=== PATIENT | male | born 1950 | race Hispanic/Latino ===

== ENCOUNTER 2022-05-31 19:26 | Inpatient (IN) | payer MEDICARE ==
[~2022-05-31] VITALS: Ht 177.8 cm; Wt 83.0 kg
[2022-05-31 20:05] LABS: BASOPHILS % (AUTO) 0.4 % (0.0-5.0); EOSINOPHILS % (AUTO) 2.5 % (0.0-8.0); HEMATOCRIT 37.4 % (42-54); LYMPHOCYTES % (AUTO) 30.6 % (21.0-51.0); MEAN CORPUSCULAR HEMOGLOBIN 29.2 pg (27.0-33.0); MEAN CORPUSCULAR HGB CONC 32.6 g/dL (32.0-36.0); MEAN CORPUSCULAR VOLUME 89.5 fL (79-99); MONOCYTES % (AUTO) 7.1 % (3.0-13.0); NEUTROPHILS % (AUTO) 59.2 % (40.0-77.0); PLATELET COUNT (AUTO) 222 K/uL (130-400); RED BLOOD CELL COUNT(AUTO) 4.18 MIL/uL (4.50-6.20); RED CELL DISTRIBUTION WIDTH 13.8 % (11.0-15.5)
[2022-05-31 20:15] LABS: CREATININE 1.8 mg/dL (0.5-1.5); POTASSIUM 4.5 mmol/L (3.5-5.1)
[2022-05-31 20:25] LABS: TOTAL PROTEIN, SERUM 7.9 g/dL (6.0-8.3)
[2022-05-31 20:29] LABS: APPEARANCE,URINE TURBID (CLEAR); BILIRUBIN,URINE NEGATIVE (NEGATIVE); COLOR,URINE RED (YELLOW); GLUCOSE, URINE (UA) 250 mg/dL (NEGATIVE); KETONES,URINE NEGATIVE (NEGATIVE); LEUKOCYTE ESTERASE ,URINE NEGATIVE Leu/uL (NEGATIVE); NITRATE,URINE NEGATIVE (NEGATIVE); OCCULT BLOOD,URINE LARGE (NEGATIVE); PH,URINE 6.5 (5.0-8.0); PROTEIN,URINE >=300 mg/dL (NEGATIVE); UROBILINOGEN,URINE 0.2 mg/dL (0.2-1.0)
[2022-05-31 20:38] LABS: BACTERIA,URINE Rare /HPF (None Seen); RBC,URINE TNTC /HPF (0-1); SQUAMOUS EPITHELIAL CELL,UR None Seen /HPF (0-2); WBC,URINE 0-1 /HPF (0-1)
[2022-06-01] MEDS ORDERED: MORPHINE 2 MG SYG IV PRN (03:00)
[2022-06-01] MEDS ORDERED: POTASSIUM CHLORIDE 20MEQ/100ML 100 ML IV PRN (03:00)
[2022-06-01] MEDS ORDERED: ONDANSETRON 4MG INJ IV PRN (03:00)
[2022-06-01] MEDS ORDERED: LACTATED RINGERS 1000ML 1,000 ML IV SCH (03:00)
[2022-06-01] MEDS ORDERED: ACETAMINOPHEN 325 MG TAB PO PRN (03:00)
[2022-06-01] MEDS ORDERED: MORPHINE 4 MG SYG IV PRN (03:00)
[2022-06-01] MEDS ORDERED: KCL 20 MEQ ERTAB PO PRN (03:00)
[2022-06-01] MEDS ORDERED: MAGNESIUM 2GM PREMIX 50ML 50 ML IV PRN (03:00)
[2022-06-01] MEDS ORDERED: NITROGLYCERIN 0.4 MG SL TAB SL PRN (03:00)
[2022-06-01] MEDS ORDERED: LIDOCAINE HCL-MPF 1% 2ML VIAL IV PRN (03:00)
[2022-06-01] MEDS ORDERED: ASPIRIN 81MG CHEW TAB PO ONE (03:00)
[2022-06-01] MEDS ORDERED: POTASSIUM CHLORIDE 10% ELIXIR 20 MEQ/15 ML UDCUP PO PRN (03:00)
[2022-06-01] MEDS ORDERED: ASPIRIN 81MG CHEW TAB ONE (03:44)
[2022-06-01 03:48] LABS: CREATININE,URINE RANDOM 86 mg/dL (30-135); SODIUM,URINE RANDOM 41 mmol/l (40-220)
[2022-06-01 04:37] LABS: BASOPHILS % (AUTO) 0.4 % (0.0-5.0); EOSINOPHILS % (AUTO) 2.7 % (0.0-8.0); HEMATOCRIT 38.9 % (42-54); LYMPHOCYTES % (AUTO) 31.8 % (21.0-51.0); MEAN CORPUSCULAR HEMOGLOBIN 28.4 pg (27.0-33.0); MEAN CORPUSCULAR HGB CONC 31.1 g/dL (32.0-36.0); MEAN CORPUSCULAR VOLUME 91.3 fL (79-99); MONOCYTES % (AUTO) 7.4 % (3.0-13.0); NEUTROPHILS % (AUTO) 57.3 % (40.0-77.0); PLATELET COUNT (AUTO) 216 K/uL (130-400); RED BLOOD CELL COUNT(AUTO) 4.26 MIL/uL (4.50-6.20); RED CELL DISTRIBUTION WIDTH 13.7 % (11.0-15.5); WHITE BLOOD COUNT (AUTO) 10.3 K/uL (4.8-10.8)
[2022-06-01 04:51] LABS: INR 0.97 (0.85-1.15); PROTHROMBIN TIME 10.6 SEC (9.6-11.6)
[2022-06-01 04:52] LABS: PARTIAL THROMBOPLASTIN TIME 29.6 SEC (26.3-35.5)
[2022-06-01 04:55] LABS: HEMOGLOBIN A1C 6.2 % (4.0-6.0)
[2022-06-01 04:59] LABS: CREATININE 1.7 mg/dL (0.5-1.5); MAGNESIUM 2.5 mg/dL (1.80-2.40); PHOSPHORUS 4.4 mg/dL (2.5-4.9); POTASSIUM 4.5 mmol/L (3.5-5.1); THYROID STIMULATING HORMONE 8.58 uIU/mL (0.36-3.74)
[2022-06-01 05:00] VITALS: BP 128/65
[2022-06-01] MEDS ORDERED: VIT1CAPS5 PO (05:48)
[2022-06-01] MEDS ORDERED: LEVO112C4 PO (05:48)
[2022-06-01] MEDS ORDERED: ATOR40TA71 PO (05:48)
[2022-06-01] MEDS ORDERED: TORS20TA4 PO (05:48)
[2022-06-01] MEDS ORDERED: METO25TA6 PO (05:48)
[2022-06-01] MEDS ORDERED: ASCO100031 PO (05:48)
[2022-06-01] MEDS ORDERED: SITA1TAB6 PO (05:48)
[2022-06-01] MEDS ORDERED: MULT1CAP57 PO (05:48)
[2022-06-01] MEDS ORDERED: SACU1TAB7 PO (05:48)
[2022-06-01] MEDS ORDERED: DAPA10TA PO (05:48)
[2022-06-01] MEDS ORDERED: MV-M1TAB20 PO (05:48)
[2022-06-01] MEDS ORDERED: APIX5TAB PO (05:48)
[2022-06-01] MEDS: INSULIN HUMULIN R 100 UNIT/ML 3ML SQ SCH ×4 (06:34→21:00)
[2022-06-01 08:00] VITALS: BP 114/65
[2022-06-01] MEDS: FAMOTIDINE 20MG TAB PO SCH (08:44)
[2022-06-01] MEDS ORDERED: ASPIRIN 81MG CHEW TAB PO SCH (09:00)
[2022-06-01 09:47] LABS: HEMATOCRIT 31.8 % (42-54)
[2022-06-01 12:00] VITALS: BP 125/73
[2022-06-01 16:00] VITALS: BP 115/62
[2022-06-01 16:00] LABS: HEMATOCRIT 35.2 % (42-54)
[2022-06-01] MEDS: DEXTROSE 5 %-0.45 % NACL 1,000 ML IV SCH (19:00)
[2022-06-01 20:00] VITALS: BP 120/65
[2022-06-01] MEDS: SACUBITRIL/VALSARTAN 1 EACH TABLET PO SCH (21:44)
[2022-06-01] MEDS: ATORVASTATIN 40 MG TABLET PO SCH (21:45)
[2022-06-01 23:06] LABS: HEMATOCRIT 30.9 % (42-54)
[2022-06-02] VITALS: BP 109/62
[2022-06-02 04:00] VITALS: BP 114/65
[2022-06-02] MEDS: DEXTROSE 5 %-0.45 % NACL 1,000 ML IV SCH (05:00)
[2022-06-02] MEDS: INSULIN HUMULIN R 100 UNIT/ML 3ML SQ SCH ×4 (05:46→21:00)
[2022-06-02 06:05] LABS: BASOPHILS % (AUTO) 0.3 % (0.0-5.0); EOSINOPHILS % (AUTO) 1.9 % (0.0-8.0); HEMATOCRIT 32.4 % (42-54); LYMPHOCYTES % (AUTO) 21.7 % (21.0-51.0); MEAN CORPUSCULAR HEMOGLOBIN 28.7 pg (27.0-33.0); MEAN CORPUSCULAR HGB CONC 32.1 g/dL (32.0-36.0); MEAN CORPUSCULAR VOLUME 89.3 fL (79-99); MONOCYTES % (AUTO) 8.3 % (3.0-13.0); NEUTROPHILS % (AUTO) 67.5 % (40.0-77.0); PLATELET COUNT (AUTO) 183 K/uL (130-400); RED BLOOD CELL COUNT(AUTO) 3.63 MIL/uL (4.50-6.20); RED CELL DISTRIBUTION WIDTH 13.4 % (11.0-15.5); WHITE BLOOD COUNT (AUTO) 7.5 K/uL (4.8-10.8)
[2022-06-02 06:20] LABS: CREATININE 1.3 mg/dL (0.5-1.5); MAGNESIUM 2.2 mg/dL (1.80-2.40); POTASSIUM 4.1 mmol/L (3.5-5.1)
[2022-06-02 06:39] LABS: % IRON SATURATION 11.3 % (30-44)
[2022-06-02] MEDS: LEVOTHYROXINE 112 MCG TABLET PO SCH (06:52)
[2022-06-02 06:57] LABS: B-TYPE NATRIURETIC PEPTIDE 631 pg/mL (0-100)
[2022-06-02 08:00] VITALS: BP 127/66
[2022-06-02] MEDS: METOPROLOL SUCCINATE 25 MG TAB.SR.24H PO SCH (08:58)
[2022-06-02] MEDS: FAMOTIDINE 20MG TAB PO SCH (08:58)
[2022-06-02] MEDS: SACUBITRIL/VALSARTAN 1 EACH TABLET PO SCH ×2 (08:58→20:57)
[2022-06-02] MEDS: ISOSORBIDE MONO 30MG SR TAB PO SCH (08:59)
[2022-06-02] MEDS: ASPIRIN 81 MG EC TAB PO SCH (09:00)
[2022-06-02] MEDS ORDERED: METOPROLOL TARTRATE 25 MG TAB PO SCH (09:00)
[2022-06-02 12:00] VITALS: BP 97/61
[2022-06-02 16:00] VITALS: BP 122/64
[2022-06-02 20:00] VITALS: BP 109/52
[2022-06-02] MEDS: ATORVASTATIN 40 MG TABLET PO SCH (20:57)
[2022-06-02] MEDS ORDERED: IRON SUCROSE COMPLEX 300 MG in 0.9% NACL 250ML 250 ML IV SCH (21:00)
[2022-06-03] VITALS (7 sets, daily range): BP systolic 98–130; BP diastolic 47–72
[2022-06-03] MEDS: DEXTROSE 5 %-0.45 % NACL 1,000 ML IV SCH (01:00)
[2022-06-03 05:55] LABS: BASOPHILS % (AUTO) 0.3 % (0.0-5.0); EOSINOPHILS % (AUTO) 1.2 % (0.0-8.0); HEMATOCRIT 29.8 % (42-54); LYMPHOCYTES % (AUTO) 18.3 % (21.0-51.0); MEAN CORPUSCULAR HEMOGLOBIN 28.6 pg (27.0-33.0); MEAN CORPUSCULAR HGB CONC 31.2 g/dL (32.0-36.0); MEAN CORPUSCULAR VOLUME 91.7 fL (79-99); MONOCYTES % (AUTO) 7.9 % (3.0-13.0); PLATELET COUNT (AUTO) 186 K/uL (130-400); RED BLOOD CELL COUNT(AUTO) 3.25 MIL/uL (4.50-6.20); RED CELL DISTRIBUTION WIDTH 13.6 % (11.0-15.5); WHITE BLOOD COUNT (AUTO) 8.9 K/uL (4.8-10.8)
[2022-06-03 06:20] LABS: CREATININE 1.3 mg/dL (0.5-1.5); MAGNESIUM 2.2 mg/dL (1.80-2.40); POTASSIUM 4.4 mmol/L (3.5-5.1); TOTAL PROTEIN, SERUM 6.5 g/dL (6.0-8.3)
[2022-06-03] MEDS: LEVOTHYROXINE 112 MCG TABLET PO SCH (06:21)
[2022-06-03] MEDS: INSULIN HUMULIN R 100 UNIT/ML 3ML SQ SCH ×2 (06:21→20:50)
[2022-06-03] MEDS: SACUBITRIL/VALSARTAN 1 EACH TABLET PO SCH ×2 (08:31→20:49)
[2022-06-03] MEDS: ASPIRIN 81 MG EC TAB PO SCH (08:32)
[2022-06-03] MEDS: METOPROLOL SUCCINATE 25 MG TAB.SR.24H PO SCH (08:32)
[2022-06-03] MEDS: FAMOTIDINE 20MG TAB PO SCH (08:32)
[2022-06-03] MEDS: ISOSORBIDE MONO 30MG SR TAB PO SCH (08:32)
[2022-06-03] MEDS: ATORVASTATIN 40 MG TABLET PO SCH (20:49)
[2022-06-03] MEDS ORDERED: IRON SUCROSE COMPLEX 300 MG in 0.9% NACL 250ML 250 ML IV SCH (21:00)
[2022-06-04 04:31] VITALS: BP 117/61
[2022-06-04] MEDS: LEVOTHYROXINE 112 MCG TABLET PO SCH (05:37)
[2022-06-04] MEDS: INSULIN HUMULIN R 100 UNIT/ML 3ML SQ SCH ×3 (06:08→21:00)
[2022-06-04 07:15] VITALS: BP 120/63
[2022-06-04 07:58] LABS: BASOPHILS % (AUTO) 0.3 % (0.0-5.0); EOSINOPHILS % (AUTO) 3.2 % (0.0-8.0); HEMATOCRIT 29.2 % (42-54); LYMPHOCYTES % (AUTO) 20.9 % (21.0-51.0); MEAN CORPUSCULAR HEMOGLOBIN 28.5 pg (27.0-33.0); MEAN CORPUSCULAR HGB CONC 31.5 g/dL (32.0-36.0); MEAN CORPUSCULAR VOLUME 90.4 fL (79-99); MONOCYTES % (AUTO) 9.6 % (3.0-13.0); NEUTROPHILS % (AUTO) 65.6 % (40.0-77.0); PLATELET COUNT (AUTO) 189 K/uL (130-400); RED BLOOD CELL COUNT(AUTO) 3.23 MIL/uL (4.50-6.20); RED CELL DISTRIBUTION WIDTH 13.7 % (11.0-15.5); WHITE BLOOD COUNT (AUTO) 7.1 K/uL (4.8-10.8)
[2022-06-04 08:15] LABS: ALBUMIN 3.1 g/dL (3.5-5.0); CREATININE 1.2 mg/dL (0.5-1.5); MAGNESIUM 2.2 mg/dL (1.80-2.40); POTASSIUM 4.9 mmol/L (3.5-5.1); TOTAL PROTEIN, SERUM 6.6 g/dL (6.0-8.3)
[2022-06-04] MEDS: ASPIRIN 81 MG EC TAB PO SCH (09:55)
[2022-06-04] MEDS: ISOSORBIDE MONO 30MG SR TAB PO SCH (09:56)
[2022-06-04] MEDS: METOPROLOL SUCCINATE 25 MG TAB.SR.24H PO SCH (09:56)
[2022-06-04] MEDS: SACUBITRIL/VALSARTAN 1 EACH TABLET PO SCH ×2 (09:56→22:48)
[2022-06-04] MEDS: FAMOTIDINE 20MG TAB PO SCH (09:56)
[2022-06-04 11:15] VITALS: BP 99/58
[2022-06-04 15:20] VITALS: BP 114/58
[2022-06-04] MEDS ORDERED: IOHEXOL 350 MG/ML 100ML INFUS..BTL IV ONE (15:48)
[2022-06-04 20:21] VITALS: BP 115/63
[2022-06-04] MEDS: ATORVASTATIN 40 MG TABLET PO SCH (22:48)
[2022-06-05] VITALS (7 sets, daily range): BP systolic 107–132; BP diastolic 52–72
[2022-06-05] MEDS: DEXTROSE 5 %-0.45 % NACL 1,000 ML IV SCH ×2 (03:00→13:00)
[2022-06-05] MEDS: INSULIN HUMULIN R 100 UNIT/ML 3ML SQ SCH ×4 (05:02→20:42)
[2022-06-05 05:24] LABS: BASOPHILS % (AUTO) 0.2 % (0.0-5.0); HEMATOCRIT 28.2 % (42-54); LYMPHOCYTES % (AUTO) 21.6 % (21.0-51.0); MEAN CORPUSCULAR HGB CONC 31.2 g/dL (32.0-36.0); MEAN CORPUSCULAR VOLUME 89.8 fL (79-99); MONOCYTES % (AUTO) 9.5 % (3.0-13.0); NEUTROPHILS % (AUTO) 65.3 % (40.0-77.0); PLATELET COUNT (AUTO) 199 K/uL (130-400); RED BLOOD CELL COUNT(AUTO) 3.14 MIL/uL (4.50-6.20); RED CELL DISTRIBUTION WIDTH 13.8 % (11.0-15.5); WHITE BLOOD COUNT (AUTO) 8.1 K/uL (4.8-10.8)
[2022-06-05 05:43] LABS: ALBUMIN 2.9 g/dL (3.5-5.0); CREATININE 1.1 mg/dL (0.5-1.5); MAGNESIUM 2.1 mg/dL (1.80-2.40); POTASSIUM 4.2 mmol/L (3.5-5.1); TOTAL PROTEIN, SERUM 6.4 g/dL (6.0-8.3)
[2022-06-05] MEDS: LEVOTHYROXINE 112 MCG TABLET PO SCH (06:27)
[2022-06-05] MEDS: ASPIRIN 81 MG EC TAB PO SCH (09:00)
[2022-06-05] MEDS: METOPROLOL SUCCINATE 25 MG TAB.SR.24H PO SCH (10:54)
[2022-06-05] MEDS: SACUBITRIL/VALSARTAN 1 EACH TABLET PO SCH ×2 (10:54→21:14)
[2022-06-05] MEDS: FAMOTIDINE 20MG TAB PO SCH (10:54)
[2022-06-05] MEDS: ISOSORBIDE MONO 30MG SR TAB PO SCH (10:56)
[2022-06-05] MEDS: ATORVASTATIN 40 MG TABLET PO SCH (21:14)
[2022-06-06] MEDS: DEXTROSE 5 %-0.45 % NACL 1,000 ML IV SCH ×3 (02:47→18:12)
[2022-06-06 04:21] VITALS: BP 121/68
[2022-06-06] MEDS: INSULIN HUMULIN R 100 UNIT/ML 3ML SQ SCH ×4 (07:30→21:00)
[2022-06-06 08:00] VITALS: BP 118/61
[2022-06-06] MEDS: LEVOTHYROXINE 112 MCG TABLET PO SCH (08:01)
[2022-06-06] MEDS: METOPROLOL SUCCINATE 25 MG TAB.SR.24H PO SCH (09:02)
[2022-06-06] MEDS: FAMOTIDINE 20MG TAB PO SCH (09:03)
[2022-06-06] MEDS: ASPIRIN 81 MG EC TAB PO SCH (09:03)
[2022-06-06] MEDS: ISOSORBIDE MONO 30MG SR TAB PO SCH (09:03)
[2022-06-06] MEDS: SACUBITRIL/VALSARTAN 1 EACH TABLET PO SCH ×2 (09:03→22:51)
[2022-06-06 12:00] VITALS: BP 106/59
[2022-06-06 12:38] LABS: BASOPHILS % (AUTO) 0.3 % (0.0-5.0); EOSINOPHILS % (AUTO) 3.9 % (0.0-8.0); HEMATOCRIT 24.8 % (42-54); LYMPHOCYTES % (AUTO) 23.4 % (21.0-51.0); MEAN CORPUSCULAR HEMOGLOBIN 28.5 pg (27.0-33.0); MEAN CORPUSCULAR HGB CONC 31.5 g/dL (32.0-36.0); MEAN CORPUSCULAR VOLUME 90.5 fL (79-99); MONOCYTES % (AUTO) 10.5 % (3.0-13.0); NEUTROPHILS % (AUTO) 61.7 % (40.0-77.0); PLATELET COUNT (AUTO) 184 K/uL (130-400); RED BLOOD CELL COUNT(AUTO) 2.74 MIL/uL (4.50-6.20); WHITE BLOOD COUNT (AUTO) 5.9 K/uL (4.8-10.8)
[2022-06-06 12:50] LABS: ALBUMIN 2.6 g/dL (3.5-5.0); CREATININE 1.2 mg/dL (0.5-1.5); MAGNESIUM 2.1 mg/dL (1.80-2.40); POTASSIUM 4.1 mmol/L (3.5-5.1)
[2022-06-06 16:00] VITALS: BP 116/66
[2022-06-06 20:00] VITALS: BP 116/66
[2022-06-06] MEDS: ATORVASTATIN 40 MG TABLET PO SCH (22:51)
[2022-06-06] MEDS ORDERED: HYDROXYZINE 25 MG TABLET PO ONE (23:30)
[2022-06-07] VITALS: BP 116/59
[2022-06-07 04:00] VITALS: BP 139/73
[2022-06-07] MEDS: DEXTROSE 5 %-0.45 % NACL 1,000 ML IV SCH ×3 (05:00→22:15)
[2022-06-07 06:56] LABS: BASOPHILS % (AUTO) 0.4 % (0.0-5.0); EOSINOPHILS % (AUTO) 3.9 % (0.0-8.0); HEMATOCRIT 32.7 % (42-54); LYMPHOCYTES % (AUTO) 21.3 % (21.0-51.0); MEAN CORPUSCULAR HGB CONC 32.4 g/dL (32.0-36.0); MEAN CORPUSCULAR VOLUME 89.3 fL (79-99); MONOCYTES % (AUTO) 9.6 % (3.0-13.0); NEUTROPHILS % (AUTO) 64.5 % (40.0-77.0); PLATELET COUNT (AUTO) 193 K/uL (130-400); RED BLOOD CELL COUNT(AUTO) 3.66 MIL/uL (4.50-6.20); RED CELL DISTRIBUTION WIDTH 14.2 % (11.0-15.5)
[2022-06-07 07:17] LABS: ALBUMIN 2.8 g/dL (3.5-5.0); CREATININE 1.2 mg/dL (0.5-1.5); MAGNESIUM 2.1 mg/dL (1.80-2.40); POTASSIUM 4.3 mmol/L (3.5-5.1); TOTAL PROTEIN, SERUM 6.3 g/dL (6.0-8.3)
[2022-06-07] MEDS: INSULIN HUMULIN R 100 UNIT/ML 3ML SQ SCH ×4 (07:30→20:22)
[2022-06-07] MEDS: LEVOTHYROXINE 112 MCG TABLET PO SCH (07:47)
[2022-06-07 08:00] VITALS: BP 122/71
[2022-06-07] MEDS: FAMOTIDINE 20MG TAB PO SCH (08:45)
[2022-06-07] MEDS: ASPIRIN 81 MG EC TAB PO SCH (08:45)
[2022-06-07] MEDS: METOPROLOL SUCCINATE 25 MG TAB.SR.24H PO SCH (08:45)
[2022-06-07] MEDS: SACUBITRIL/VALSARTAN 1 EACH TABLET PO SCH ×2 (08:46→20:16)
[2022-06-07] MEDS: ISOSORBIDE MONO 30MG SR TAB PO SCH (08:46)
[2022-06-07 12:00] VITALS: BP 112/67
[2022-06-07] MEDS ORDERED: DESMOPRESSIN IJ SCH (12:30)
[2022-06-07] MEDS ORDERED: [UNRECOGNIZED DRUG - OTHER] IJ SCH (12:30)
[2022-06-07 16:00] VITALS: BP 111/63
[2022-06-07 20:00] VITALS: BP 138/64
[2022-06-07] MEDS: AMINOCAPROIC ACID 500MG TAB PO SCH (20:16)
[2022-06-07] MEDS: ATORVASTATIN 40 MG TABLET PO SCH (20:17)
[2022-06-07] MEDS: FERROUS SULFATE 325 MG TABLET.DR PO SCH (20:17)
[2022-06-07] MEDS ORDERED: HYDROXYZINE 25 MG TABLET PO ONE (22:00)
[2022-06-07] MEDS: ACETAMINOPHEN 325 MG TAB PO PRN (22:11)
[2022-06-08] VITALS: BP 138/64
[2022-06-08 04:00] VITALS: BP 117/65
[2022-06-08 05:12] LABS: BASOPHILS % (AUTO) 0.5 % (0.0-5.0); EOSINOPHILS % (AUTO) 3.6 % (0.0-8.0); HEMATOCRIT 30.7 % (42-54); MEAN CORPUSCULAR HEMOGLOBIN 28.9 pg (27.0-33.0); MEAN CORPUSCULAR HGB CONC 31.6 g/dL (32.0-36.0); MEAN CORPUSCULAR VOLUME 91.4 fL (79-99); MONOCYTES % (AUTO) 9.4 % (3.0-13.0); PLATELET COUNT (AUTO) 184 K/uL (130-400); RED BLOOD CELL COUNT(AUTO) 3.36 MIL/uL (4.50-6.20); RED CELL DISTRIBUTION WIDTH 14.6 % (11.0-15.5); WHITE BLOOD COUNT (AUTO) 7.8 K/uL (4.8-10.8)
[2022-06-08] MEDS: LEVOTHYROXINE 112 MCG TABLET PO SCH (05:34)
[2022-06-08] MEDS: ACETAMINOPHEN 325 MG TAB PO PRN ×2 (05:35→21:28)
[2022-06-08 05:36] LABS: ALBUMIN 2.8 g/dL (3.5-5.0); CREATININE 1.4 mg/dL (0.5-1.5); POTASSIUM 4.1 mmol/L (3.5-5.1); TOTAL PROTEIN, SERUM 6.5 g/dL (6.0-8.3)
[2022-06-08] MEDS: INSULIN HUMULIN R 100 UNIT/ML 3ML SQ SCH ×4 (06:02→21:00)
[2022-06-08 09:09] VITALS: BP 128/61
[2022-06-08] MEDS: FERROUS SULFATE 325 MG TABLET.DR PO SCH ×3 (09:33→21:28)
[2022-06-08] MEDS: FOLIC ACID 1 MG TABLET PO SCH (09:33)
[2022-06-08] MEDS: ASPIRIN 81 MG EC TAB PO SCH (09:33)
[2022-06-08] MEDS: METOPROLOL SUCCINATE 25 MG TAB.SR.24H PO SCH (09:33)
[2022-06-08] MEDS: AMINOCAPROIC ACID 500MG TAB PO SCH ×4 (09:34→21:27)
[2022-06-08] MEDS: ISOSORBIDE MONO 30MG SR TAB PO SCH (09:34)
[2022-06-08] MEDS: FAMOTIDINE 20MG TAB PO SCH (09:34)
[2022-06-08] MEDS: SACUBITRIL/VALSARTAN 1 EACH TABLET PO SCH ×2 (09:36→21:27)
[2022-06-08] MEDS: DEXTROSE 5 %-0.45 % NACL 1,000 ML IV SCH ×2 (09:40→19:37)
[2022-06-08] MEDS: HYDROXYZINE 25 MG TABLET PO SCH ×2 (12:29→21:28)
[2022-06-08 12:52] VITALS: BP 118/70
[2022-06-08 16:47] VITALS: BP 127/60
[2022-06-08 20:00] VITALS: BP 125/62
[2022-06-08] MEDS: ATORVASTATIN 40 MG TABLET PO SCH (21:27)
[2022-06-09] VITALS: BP 116/62
[2022-06-09 04:00] VITALS: BP 131/62
[2022-06-09] MEDS: LEVOTHYROXINE 112 MCG TABLET PO SCH (06:20)
[2022-06-09] MEDS: DEXTROSE 5 %-0.45 % NACL 1,000 ML IV SCH (06:20)
[2022-06-09] MEDS: INSULIN HUMULIN R 100 UNIT/ML 3ML SQ SCH ×4 (06:36→21:00)
[2022-06-09 08:00] VITALS: BP 161/59
[2022-06-09] MEDS: SACUBITRIL/VALSARTAN 1 EACH TABLET PO SCH (09:04)
[2022-06-09] MEDS: ASPIRIN 81 MG EC TAB PO SCH (09:04)
[2022-06-09] MEDS: FAMOTIDINE 20MG TAB PO SCH (09:04)
[2022-06-09] MEDS: ISOSORBIDE MONO 30MG SR TAB PO SCH (09:04)
[2022-06-09] MEDS: AMINOCAPROIC ACID 500MG TAB PO SCH ×4 (09:04→21:20)
[2022-06-09] MEDS: METOPROLOL SUCCINATE 25 MG TAB.SR.24H PO SCH (09:04)
[2022-06-09] MEDS: FERROUS SULFATE 325 MG TABLET.DR PO SCH ×3 (09:04→21:20)
[2022-06-09] MEDS: HYDROXYZINE 25 MG TABLET PO SCH ×2 (09:05→21:20)
[2022-06-09] MEDS: FOLIC ACID 1 MG TABLET PO SCH (09:05)
[2022-06-09 09:40] LABS: BASOPHILS % (AUTO) 0.3 % (0.0-5.0); EOSINOPHILS % (AUTO) 0.5 % (0.0-8.0); HEMATOCRIT 32.1 % (42-54); LYMPHOCYTES % (AUTO) 9.7 % (21.0-51.0); MEAN CORPUSCULAR HEMOGLOBIN 28.8 pg (27.0-33.0); MEAN CORPUSCULAR HGB CONC 31.2 g/dL (32.0-36.0); MEAN CORPUSCULAR VOLUME 92.5 fL (79-99); MONOCYTES % (AUTO) 9.2 % (3.0-13.0); NEUTROPHILS % (AUTO) 79.8 % (40.0-77.0); PLATELET COUNT (AUTO) 206 K/uL (130-400); RED BLOOD CELL COUNT(AUTO) 3.47 MIL/uL (4.50-6.20); RED CELL DISTRIBUTION WIDTH 14.5 % (11.0-15.5); WHITE BLOOD COUNT (AUTO) 8.8 K/uL (4.8-10.8)
[2022-06-09 09:57] LABS: ALBUMIN 2.6 g/dL (3.5-5.0); POTASSIUM 4.6 mmol/L (3.5-5.1); TOTAL PROTEIN, SERUM 6.3 g/dL (6.0-8.3)
[2022-06-09 12:00] VITALS: BP 148/79
[2022-06-09 16:00] VITALS: BP 144/73
[2022-06-09 20:00] VITALS: BP 129/63
[2022-06-09] MEDS: ATORVASTATIN 40 MG TABLET PO SCH (21:20)
[2022-06-10] VITALS: BP 134/73
[2022-06-10 04:00] VITALS: BP 150/71
[2022-06-10 05:47] LABS: BASOPHILS % (AUTO) 0.5 % (0.0-5.0); HEMATOCRIT 28.5 % (42-54); LYMPHOCYTES % (AUTO) 16.4 % (21.0-51.0); MEAN CORPUSCULAR HEMOGLOBIN 29.1 pg (27.0-33.0); MEAN CORPUSCULAR HGB CONC 31.9 g/dL (32.0-36.0); MEAN CORPUSCULAR VOLUME 91.1 fL (79-99); MONOCYTES % (AUTO) 10.5 % (3.0-13.0); NEUTROPHILS % (AUTO) 70.9 % (40.0-77.0); PLATELET COUNT (AUTO) 219 K/uL (130-400); RED BLOOD CELL COUNT(AUTO) 3.13 MIL/uL (4.50-6.20); RED CELL DISTRIBUTION WIDTH 14.3 % (11.0-15.5); WHITE BLOOD COUNT (AUTO) 8.9 K/uL (4.8-10.8)
[2022-06-10] MEDS: LEVOTHYROXINE 112 MCG TABLET PO SCH (05:54)
[2022-06-10 06:03] LABS: ALBUMIN 2.5 g/dL (3.5-5.0); CREATININE 2.2 mg/dL (0.5-1.5); MAGNESIUM 1.8 mg/dL (1.80-2.40); POTASSIUM 4.2 mmol/L (3.5-5.1)
[2022-06-10] MEDS: INSULIN HUMULIN R 100 UNIT/ML 3ML SQ SCH ×4 (06:56→20:46)
[2022-06-10 08:00] VITALS: BP 133/74
[2022-06-10] MEDS ORDERED: FUROSEMIDE 20MG VIAL IV SCH (09:00)
[2022-06-10] MEDS: FOLIC ACID 1 MG TABLET PO SCH (10:19)
[2022-06-10] MEDS: ASPIRIN 81 MG EC TAB PO SCH (10:19)
[2022-06-10] MEDS: ISOSORBIDE MONO 30MG SR TAB PO SCH (10:20)
[2022-06-10] MEDS: METOPROLOL SUCCINATE 25 MG TAB.SR.24H PO SCH (10:20)
[2022-06-10] MEDS: HYDROXYZINE 25 MG TABLET PO SCH ×2 (10:20→20:49)
[2022-06-10] MEDS: FAMOTIDINE 20MG TAB PO SCH (10:20)
[2022-06-10] MEDS: FERROUS SULFATE 325 MG TABLET.DR PO SCH ×3 (10:29→20:49)
[2022-06-10] MEDS: AMINOCAPROIC ACID 500MG TAB PO SCH ×4 (10:29→20:49)
[2022-06-10 11:36] VITALS: BP 139/61
[2022-06-10] MEDS: SPIRONOLACTONE 25 MG TAB PO SCH (13:15)
[2022-06-10] MEDS: FUROSEMIDE 20MG VIAL IV SCH ×2 (13:22→23:41)
[2022-06-10] MEDS ORDERED: SPIRONOLACTONE 25 MG TAB PO ONE (13:30)
[2022-06-10 16:00] VITALS: BP 127/70
[2022-06-10] MEDS: LACTULOSE 20 GM/30 ML UDCUP PO PRN (17:07)
[2022-06-10 19:44] VITALS: BP 169/79
[2022-06-10] MEDS: ATORVASTATIN 40 MG TABLET PO SCH (20:49)
[2022-06-11] VITALS: BP 127/69
[2022-06-11 03:17] VITALS: BP 133/68
[2022-06-11] MEDS: LEVOTHYROXINE 112 MCG TABLET PO SCH (05:49)
[2022-06-11] MEDS: INSULIN HUMULIN R 100 UNIT/ML 3ML SQ SCH ×4 (05:49→21:00)
[2022-06-11 06:37] LABS: BASOPHILS % (AUTO) 0.3 % (0.0-5.0); HEMATOCRIT 28.4 % (42-54); LYMPHOCYTES % (AUTO) 16.9 % (21.0-51.0); MEAN CORPUSCULAR HEMOGLOBIN 28.8 pg (27.0-33.0); MEAN CORPUSCULAR HGB CONC 32.4 g/dL (32.0-36.0); MONOCYTES % (AUTO) 9.6 % (3.0-13.0); NEUTROPHILS % (AUTO) 70.7 % (40.0-77.0); PLATELET COUNT (AUTO) 291 K/uL (130-400); RED BLOOD CELL COUNT(AUTO) 3.19 MIL/uL (4.50-6.20); RED CELL DISTRIBUTION WIDTH 14.3 % (11.0-15.5); WHITE BLOOD COUNT (AUTO) 8.9 K/uL (4.8-10.8)
[2022-06-11 06:47] LABS: ALBUMIN 2.6 g/dL (3.5-5.0); CREATININE 2.4 mg/dL (0.5-1.5); MAGNESIUM 1.9 mg/dL (1.80-2.40); PHOSPHORUS 3.7 mg/dL (2.5-4.9); POTASSIUM 3.9 mmol/L (3.5-5.1); TOTAL PROTEIN, SERUM 6.5 g/dL (6.0-8.3)
[2022-06-11 07:30] VITALS: BP 167/78
[2022-06-11] MEDS: FERROUS SULFATE 325 MG TABLET.DR PO SCH ×3 (08:14→21:59)
[2022-06-11] MEDS: AMINOCAPROIC ACID 500MG TAB PO SCH ×4 (08:14→21:58)
[2022-06-11] MEDS: HYDROXYZINE 25 MG TABLET PO SCH ×2 (08:15→21:59)
[2022-06-11] MEDS: METOPROLOL SUCCINATE 25 MG TAB.SR.24H PO SCH (08:15)
[2022-06-11] MEDS: FAMOTIDINE 20MG TAB PO SCH (08:15)
[2022-06-11] MEDS: ASPIRIN 81 MG EC TAB PO SCH (08:15)
[2022-06-11] MEDS: SPIRONOLACTONE 25 MG TAB PO SCH (08:15)
[2022-06-11] MEDS: ISOSORBIDE MONO 30MG SR TAB PO SCH (08:15)
[2022-06-11] MEDS: FOLIC ACID 1 MG TABLET PO SCH (08:15)
[2022-06-11 11:30] VITALS: BP 131/68
[2022-06-11] MEDS: FUROSEMIDE 20MG VIAL IV SCH (12:13)
[2022-06-11 15:30] VITALS: BP 127/73
[2022-06-11 20:00] VITALS: BP 131/72
[2022-06-11] MEDS: ATORVASTATIN 40 MG TABLET PO SCH (21:59)
[2022-06-11] MEDS: LACTULOSE 20 GM/30 ML UDCUP PO PRN (21:59)
[2022-06-12] VITALS: BP 129/67
[2022-06-12 03:38] VITALS: BP 121/72
[2022-06-12] MEDS: INSULIN HUMULIN R 100 UNIT/ML 3ML SQ SCH ×4 (06:12→21:00)
[2022-06-12 06:26] LABS: BASOPHILS % (AUTO) 0.4 % (0.0-5.0); EOSINOPHILS % (AUTO) 3.2 % (0.0-8.0); HEMATOCRIT 28.8 % (42-54); LYMPHOCYTES % (AUTO) 18.4 % (21.0-51.0); MEAN CORPUSCULAR HEMOGLOBIN 29.2 pg (27.0-33.0); MEAN CORPUSCULAR HGB CONC 32.3 g/dL (32.0-36.0); MEAN CORPUSCULAR VOLUME 90.3 fL (79-99); MONOCYTES % (AUTO) 9.4 % (3.0-13.0); NEUTROPHILS % (AUTO) 68.2 % (40.0-77.0); PLATELET COUNT (AUTO) 265 K/uL (130-400); RED BLOOD CELL COUNT(AUTO) 3.19 MIL/uL (4.50-6.20); RED CELL DISTRIBUTION WIDTH 14.3 % (11.0-15.5)
[2022-06-12 06:44] LABS: ALBUMIN 2.5 g/dL (3.5-5.0); CREATININE 2.4 mg/dL (0.5-1.5); MAGNESIUM 1.9 mg/dL (1.80-2.40); POTASSIUM 4.4 mmol/L (3.5-5.1); TOTAL PROTEIN, SERUM 6.3 g/dL (6.0-8.3)
[2022-06-12] MEDS: LEVOTHYROXINE 112 MCG TABLET PO SCH (06:57)
[2022-06-12 07:30] VITALS: BP 130/63
[2022-06-12] MEDS: AMINOCAPROIC ACID 500MG TAB PO SCH ×4 (08:58→22:57)
[2022-06-12] MEDS: FOLIC ACID 1 MG TABLET PO SCH (08:58)
[2022-06-12] MEDS: ASPIRIN 81 MG EC TAB PO SCH (08:59)
[2022-06-12] MEDS: ISOSORBIDE MONO 30MG SR TAB PO SCH (08:59)
[2022-06-12] MEDS: FERROUS SULFATE 325 MG TABLET.DR PO SCH ×3 (08:59→22:57)
[2022-06-12] MEDS: FAMOTIDINE 20MG TAB PO SCH (08:59)
[2022-06-12] MEDS: HYDROXYZINE 25 MG TABLET PO SCH ×2 (08:59→22:57)
[2022-06-12] MEDS: METOPROLOL SUCCINATE 25 MG TAB.SR.24H PO SCH (08:59)
[2022-06-12 11:23] VITALS: BP 111/62
[2022-06-12 15:30] VITALS: BP 141/69
[2022-06-12 19:00] VITALS: BP 128/65
[2022-06-12] MEDS: ATORVASTATIN 40 MG TABLET PO SCH (22:57)
[2022-06-13] VITALS: BP 129/68
[2022-06-13 04:00] VITALS: BP 144/70
[2022-06-13] MEDS: INSULIN HUMULIN R 100 UNIT/ML 3ML SQ SCH ×3 (06:31→16:30)
[2022-06-13] MEDS: LEVOTHYROXINE 112 MCG TABLET PO SCH (06:33)
[2022-06-13 08:00] VITALS: BP 112/68
[2022-06-13] MEDS: ISOSORBIDE MONO 30MG SR TAB PO SCH (08:41)
[2022-06-13] MEDS: AMINOCAPROIC ACID 500MG TAB PO SCH ×3 (08:41→17:54)
[2022-06-13] MEDS: FERROUS SULFATE 325 MG TABLET.DR PO SCH ×2 (08:41→13:11)
[2022-06-13] MEDS: ASPIRIN 81 MG EC TAB PO SCH (08:41)
[2022-06-13] MEDS: FAMOTIDINE 20MG TAB PO SCH (08:41)
[2022-06-13] MEDS: METOPROLOL SUCCINATE 25 MG TAB.SR.24H PO SCH (08:41)
[2022-06-13] MEDS: HYDROXYZINE 25 MG TABLET PO SCH (08:41)
[2022-06-13] MEDS: FOLIC ACID 1 MG TABLET PO SCH (08:41)
[2022-06-13 12:00] VITALS: BP 128/57
[2022-06-13] MEDS ORDERED: METO25TA3 PO (14:41)
[2022-06-13] MEDS ORDERED: FOLI1 PO (14:41)
[2022-06-13] MEDS ORDERED: Isosorbide Mono 30MG Sr Tab PO (14:41)
[2022-06-13] MEDS ORDERED: FERR324T4 PO (14:41)
[2022-06-13 16:00] VITALS: BP 132/70
== END 2022-06-13 20:19 | disposition home or self-care (01) | DRG 682 ==
LOC: EDH 19:26 → EDHIP 23:55 → 3AH 06-01 04:45
PROVIDERS: ADMIT Internal Medicine; ATTEND Internal Medicine
PROC: 30233N1 Transfusion of Nonautologous Red Blood Cells into Peripheral Vein, Percutaneous Approach (ICD-10-PCS; principal; 2022-06-06)
DX: N17.0 Acute kidney failure with tubular necrosis (principal); E43 Unspecified severe protein-calorie malnutrition; I50.23 Acute on chronic systolic (congestive) heart failure; D62 Acute posthemorrhagic anemia; I25.110 Atherosclerotic heart disease of native coronary artery with unstable angina pectoris; I13.0 Hypertensive heart and chronic kidney disease with heart failure and stage 1 through stage 4 chronic kidney disease, or unspecified chronic kidney disease; C68.0 Malignant neoplasm of urethra; Z20.822 Contact with and (suspected) exposure to COVID-19; I25.5 Ischemic cardiomyopathy; N18.30 Chronic kidney disease, stage 3 unspecified; E11.22 Type 2 diabetes mellitus with diabetic chronic kidney disease; E89.0 Postprocedural hypothyroidism; I48.0 Paroxysmal atrial fibrillation; E66.01 Morbid (severe) obesity due to excess calories; R31.0 Gross hematuria; F17.210 Nicotine dependence, cigarettes, uncomplicated; E78.00 Pure hypercholesterolemia, unspecified; N32.9 Bladder disorder, unspecified; Z85.46 Personal history of malignant neoplasm of prostate; Z98.84 Bariatric surgery status; Z90.79 Acquired absence of other genital organ(s); Z79.01 Long term (current) use of anticoagulants; Z95.810 Presence of automatic (implantable) cardiac defibrillator; Z74.01 Bed confinement status; Z79.82 Long term (current) use of aspirin; Z85.51 Personal history of malignant neoplasm of bladder; Z95.1 Presence of aortocoronary bypass graft; Z68.26 Body mass index [BMI] 26.0-26.9, adult
CPT/HCPCS: 36415; 36430; 71045; 74176; 74178; 76770; 80048; 80053; 81001; 82270; 82570; 82948; 83036; 83540; 83550; 83735; 83880; 83935; 84100; 84153; 84300; 84443; 84484; 85014; 85018; 85025; 85610; 85730; 86160; 86255; 86850; 86900; 86901; 86923; 87635; 93005; G0378; J1756; J1815; J1940; J2597; J7042; J7050; P9016; Q9967